=== PATIENT | female | born 1935 | race Caucasian/White ===

== ENCOUNTER 2018-02-08 17:58 | Emergency (ER) | payer MEDICARE, BC ==
[~2018-02-08] VITALS: Ht 154.9 cm; Wt 63.5 kg
[~2018-02-08 17:58] MED LIST: ANAS1 PO; ASPI81EC PO; BELPHEELB PO; BIEST; CELE400 PO; DOXY100 PO; HYDACE5 PO; LISI5 PO; OMEP20ER; ROSU10TA PO; SULTRIDS PO; VENL75ER PO; [UNRECOGNIZED DRUG - OTHER]; [UNRECOGNIZED DRUG - OTHER]
[2018-02-08] MEDS ORDERED: METF500C PO (19:33)
[2018-02-08] MEDS ORDERED: CEPH500 PO (20:35)
[2018-02-08] MEDS ORDERED: Norco 5-325 Ta1 EACH PO (20:51)
== END 2018-02-08 20:56 | disposition home or self-care (01) ==
LOC: ER 17:58
DX: S52.02 Fracture of olecranon process without intraarticular extension of ulna (principal); Z88.5 Allergy status to narcotic agent; W01.198A Fall on same level from slipping, tripping and stumbling with subsequent striking against other object, initial encounter; Z88.1 Allergy status to other antibiotic agents; Z79.899 Other long term (current) drug therapy; Z79.82 Long term (current) use of aspirin; F32.9 Major depressive disorder, single episode, unspecified; Z85.3 Personal history of malignant neoplasm of breast; E11.9 Type 2 diabetes mellitus without complications; K21.9 Gastro-esophageal reflux disease without esophagitis; I10 Essential (primary) hypertension
CPT/HCPCS: 12002; 29105; 36415; 73080; 90471; 90714; 96361; 96374; 99283; J0690; J7030

== ENCOUNTER → 2018-11-19 | Outpatient (CLI) | payer MEDICARE, BC ==
[~2018-11-19] MED LIST changes: +CEPH500 PO; +METF500C PO; +Norco 5-325 Ta1 EACH PO
[2018-11-21 14:07] LABS: HPV 16 Negative (Negative); HPV 18 Negative (Negative); HPV OTHER HR TYPES Negative (Negative)
== END | disposition home or self-care (01) ==
LOC: LAB 17:35 → LAB SHORT 17:35
PROVIDERS: Obstetrics & Gynecology Gynecology
DX: Z12.72 Encounter for screening for malignant neoplasm of vagina (principal)
CPT/HCPCS: 87624; G0123